=== PATIENT | male | born 1990 | race Caucasian/White ===

== ENCOUNTER 2016-05-07 21:24 | Emergency (ER) | payer OTHER ==
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
[~2016-05-07 21:24] MED LIST: AMOXICILLIN500 M1 PO; IBUPROFEN PO; MOTRIN600 M1 PO; NO MEDICATIONS; PHENERGAN W/CO120 ML PO; VIBRAMYCIN100 M1 PO
== END 2016-05-07 22:58 | disposition home or self-care (01) ==
LOC: SED 21:24
DX: S06.0X9A Concussion with loss of consciousness of unspecified duration, initial encounter (principal); S00.83XA Contusion of other part of head, initial encounter; S20.219A Contusion of unspecified front wall of thorax, initial encounter; Z88.1 Allergy status to other antibiotic agents; Z91.018 Allergy to other foods; Y04.0XXA Assault by unarmed brawl or fight, initial encounter
CPT/HCPCS: 70450; 70486; 71100; 99284

== ENCOUNTER 2016-08-12 21:29 | Emergency (ER) | payer OTHER | END 2016-08-12 23:50 | disposition home or self-care (01) | LOC: CED 21:29 → CFTX 21:29 | DX: K04.7 Periapical abscess without sinus (principal); F17.210 Nicotine dependence, cigarettes, uncomplicated; Z91.013 Allergy to seafood | CPT/HCPCS: 99282 ==